=== PATIENT | female | born 1950 | race Caucasian/White ===

== ENCOUNTER → 2017-01-24 | Outpatient (CLI) | payer OTHER, MEDICAID | LOC: BRMIMAGING 12:15 | PROVIDERS: ATTEND Internal Medicine | DX: M05.871 Other rheumatoid arthritis with rheumatoid factor of right ankle and foot (principal); M05.872 Other rheumatoid arthritis with rheumatoid factor of left ankle and foot; M77.32 Calcaneal spur, left foot; M77.31 Calcaneal spur, right foot; M15.4 Erosive (osteo)arthritis | CPT/HCPCS: 73130-PO; 73630-PO ==